=== PATIENT | female | born 1980 | race Caucasian/White ===

== ENCOUNTER → 2019-09-26 10:16 | Outpatient (CLI) | payer BC, SELFPAY ==
--- NOTE | ~2019-09-26 | XR_ITS ---
EXAMINATION: XR abdomen/kub 1V INDICATION: Mid and upper abdominal pain TECHNIQUE: Supine views of the abdomen were obtained on 2 radiographs. COMPARISON: None FINDINGS: Bowel gas pattern is normal. There is a moderate volume of stool. No dilated loops of bowel are seen. Phleboliths are noted in the pelvis. IMPRESSION: 1. No radiographic correlate for the patient's symptoms. Reviewed, dictated and finalized at location B.
== END ==
PROVIDERS: PCP Family Medicine; Visit Provider Family Medicine
DX: K59.00 Constipation, unspecified (principal); R10.9 Unspecified abdominal pain
CPT/HCPCS: 74018

== ENCOUNTER 2020-04-30 09:55 | Outpatient (NON) | payer BC, SELFPAY ==
[2020-05-01 15:24] LABS: SARS-CoV-2 RNA PCR Negative
== END 2020-04-30 09:56 ==
PROVIDERS: Physician Assistant; PCP Family Medicine; Visit Provider Family Medicine
DX: Z20.828 Contact with and (suspected) exposure to other viral communicable diseases (principal); R68.89 Other general symptoms and signs
CPT/HCPCS: 87635; C9803; U0003

== ENCOUNTER → 2021-05-13 15:53 | Outpatient (CLI) | payer BC, SELFPAY ==
--- NOTE | ~2021-05-13 | MM_ITS ---
EXAMINATION: MM screening osorio BI w tete HISTORY: Screening mammogram TECHNIQUE: Craniocaudal and mediolateral oblique 3-D tomosynthesis images were obtained and synthetic 2-D images were generated. CAD analysis was submitted and interpreted. COMPARISON: No prior mammogram is available for comparison at this institution. BREAST PARENCHYMAL COMPOSITION: There are scattered areas of fibroglandular density. FINDINGS: There is no evidence of suspicious mass, calcification, or architectural distortion to sugg est malignancy in either breast. There has been no suspicious interval change. IMPRESSION: 1. No mammographic evidence of malignancy. 2. Recommend routine screening mammography in one year. BI-RADS Category 1: Negative Reviewed, dictated and finalized at location A. 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
== END ==
PROVIDERS: PCP Family Medicine; Visit Provider Nurse Practitioner
DX: Z12.31 Encounter for screening mammogram for malignant neoplasm of breast (principal)
CPT/HCPCS: 77063; 77067

== ENCOUNTER → 2022-08-04 15:21 | Outpatient (CLI) | payer BC, SELFPAY ==
--- NOTE | ~2022-08-04 | MM_ITS ---
EXAMINATION: MM screening osorio BI w tete HISTORY: Screening TECHNIQUE: Craniocaudal and mediolateral oblique 3-D tomosynthesis images were obtained and synthetic 2-D images were generated. CAD analysis was submitted and interpreted. COMPARISON: 05/13/2021 BREAST PARENCHYMAL COMPOSITION: There are scattered areas of fibroglandular density. FINDINGS: There is no evidence of suspicious mass, calcification, or architectural distortion to sugg est malignancy in either breast. There has been no suspicious interval change. IMPRESSION: 1. No mammographic evidence of malignancy. 2. Recommend routine screening mammography in one year. BI-RADS Category 1: Negative Reviewed, dictated and finalized at location A. 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
== END ==
PROVIDERS: PCP Family Medicine; Visit Provider Nurse Practitioner
DX: Z12.31 Encounter for screening mammogram for malignant neoplasm of breast (principal)
CPT/HCPCS: 77063; 77067

== ENCOUNTER 2023-09-07 10:35 | Outpatient (CLI) | payer BC, SELFPAY ==
--- NOTE | ~2023-09-07 | MM_ITS ---
EXAMINATION: MM screening osorio BI w tete HISTORY: Screening mammogram TECHNIQUE: Craniocaudal and mediolateral oblique 3-D tomosynthesis images were obtained and synthetic 2-D images were generated. CAD analysis was submitted and interpreted. COMPARISON: August 04, 2022, May 13, 2021 bilateral screening mammogram examinations BREAST PARENCHYMAL COMPOSITION: There are scattered areas of fibroglandular density. FINDINGS: There is no evidence of suspicious mass, calcification, or architectural distortion to sugg est malignancy in either breast. There has been no suspicious interval change. IMPRESSION: 1. No mammographic evidence of malignancy. 2. Recommend routine screening mammography in one year. BI-RADS Category 1: Negative Reviewed, dictated and finalized at location A. 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
== END 2023-09-07 10:36 ==
LOC: MICIMG 10:36
PROVIDERS: PCP Nurse Practitioner; Visit Provider Nurse Practitioner
DX: Z12.31 Encounter for screening mammogram for malignant neoplasm of breast (principal)
CPT/HCPCS: 77063; 77067

== ENCOUNTER 2024-11-14 12:08 | Outpatient (CLI) | payer BC, SELFPAY ==
--- NOTE | ~2024-11-14 | MM_ITS ---
EXAMINATION: MM screening osorio BI w tete HISTORY: Screening TECHNIQUE: Craniocaudal and mediolateral oblique 3-D tomosynthesis images were obtained and synthetic 2-D images were generated. CAD analysis was submitted and interpreted. COMPARISON: Comparison to multiple prior studies sequentially, with oldest reviewed study dated 05/02. BREAST PARENCHYMAL COMPOSITION: Not dense: There are scattered areas of fibroglandular density. FINDINGS: There is no evidence of suspicious mass, calcification, or architectural distortion to sugg est malignancy in either breast. There has been no suspicious interval change. IMPRESSION: 1. No mammographic evidence of malignancy. 2. Recommend routine screening mammography in one year. BI-RADS Category 1: Negative Reviewed, dictated and finalized at location B.
== END 2024-11-15 08:00 | disposition home or self-care (01) ==
PROVIDERS: PCP Family Medicine; Visit Provider Nurse Practitioner
DX: Z12.31 Encounter for screening mammogram for malignant neoplasm of breast (principal)
CPT/HCPCS: 77063; 77067